=== PATIENT | female | born 1970 | race Caucasian/White ===

== ENCOUNTER 2022-07-31 13:29 | Emergency (ER) | payer OTHER ==
[2022-07-31] MEDS ORDERED: Sodium Chloride 0.9% 10 ML Syringe FLUSH PRN (15:03)
== END 2022-07-31 15:45 | disposition home or self-care (01) ==
LOC: LB.ED 13:29
DX: K21.9 Gastro-esophageal reflux disease without esophagitis (principal); K44.9 Diaphragmatic hernia without obstruction or gangrene
CPT/HCPCS: 36415; 71045; 80053; 81001; 84484; 85027; 85379; 87804; 87804-59; 99285; U0002

== ENCOUNTER 2023-09-12 09:41 | Day surgery (SDC) | payer OTHER ==
[~2023-09-12 09:41] MED LIST: Metoclopramide 10 MG/2 ML SDV IV PRN; Sodium Chloride 0.9% 1,000 ML IV SCH
[2023-09-12] MEDS ORDERED: Propofol 200 MG/20 ML SDV ONE (11:30)
== END 2023-09-12 12:47 | disposition home or self-care (01) ==
LOC: LB.SDS 09:41
PROVIDERS: ATTEND Surgery
DX: Z12.11 Encounter for screening for malignant neoplasm of colon (principal); D12.5 Benign neoplasm of sigmoid colon; K21.9 Gastro-esophageal reflux disease without esophagitis; K44.9 Diaphragmatic hernia without obstruction or gangrene; F41.9 Anxiety disorder, unspecified; M76.60 Achilles tendinitis, unspecified leg; R07.9 Chest pain, unspecified; R04.0 Epistaxis; Z79.899 Other long term (current) drug therapy
CPT/HCPCS: 88305; J2704; J2765; J7030

== ENCOUNTER 2024-06-17 15:51 | Emergency (ER) | payer OTHER ==
[2024-06-17 16:21] LABS: BASOPHILS ABSOLUTE AUTO 0.03 K/uL (0.02-0.10); BASOPHILS PERCENT AUTO 0.4 % (0.0-0.5); EOSINOPHILS ABSOLUTE AUTO 0.42 K/uL (0.04-0.40); EOSINOPHILS PERCENT AUTO 5.3 % (1.0-5.0); HEMATOCRIT 41.8 % (37.0-47.0); HEMOGLOBIN 13.8 g/dL (11.5-16.5); LYMPHOCYTES ABSOLUTE AUTO 1.69 K/uL (1.50-4.00); LYMPHOCYTES PERCENT AUTO 21.4 % (20.0-40.0); MEAN CORPUSCULAR VOLUME 85 fL (76-96); MEAN PLATELET VOLUME 9.6 fL (6.0-10.0); MONOCYTES ABSOLUTE AUTO 0.47 K/uL (0.20-0.80); NEUTROPHILS ABSOLUTE AUTO 5.27 K/uL (2.00-7.50); NEUTROPHILS PERCENT AUTO 66.9 % (45.0-70.0); PLATELET COUNT,PLT 235 K/uL (150-500); RED BLOOD CELL COUNT 4.92 M/uL (3.80-5.80); RED CELL DISTRIBUTION WIDTH 13.4 % (11.0-16.0); WHITE BLOOD CELL COUNT,WBC 7.9 K/uL (4.0-11.0)
[2024-06-17] MEDS: Ketorolac 30 MG/ML SDV IM ONE (16:30)
[2024-06-17 16:42] LABS: A/G RATIO 1.1 (0.8-2.0); ALANINE AMINOTRANSFERASE,ALT 24 U/L (12-78); ALBUMIN 3.7 g/dL (3.4-5.0); ALKALINE PHOSPHATASE 96 U/L (46-116); ANION GAP 13.7 mmol/L (5.0-15.0); ASPARTATE AMNIOTRANSFERASE,AST 13 U/L (15-37); BILIRUBIN TOTAL 0.6 mg/dL (0.0-1.0); BLOOD UREA NITROGEN,BUN 23 mg/dL (8-26); CALCIUM 9.2 mg/dL (8.5-10.1); CARBON DIOXIDE,CO2 27.2 mmol/L (21.0-32.0); CHLORIDE,CL 99 mmol/L (98-107); CREATININE 0.82 mg/dL (0.55-1.02); ESTIMATED GFR 86 mL/min (>60); GLUCOSE RANDOM 103 mg/dL (74-100); POTASSIUM,K 3.9 mmol/L (3.5-5.1); SODIUM,NA 136 mmol/L (136-145)
[2024-06-17] MEDS ORDERED: Sodium Chloride 0.9% 10 ML Syringe FLUSH PRN (17:11)
[2024-06-17] MEDS: Sodium Chloride 0.9% 50 ML SDV FLUSH ONE (17:13)
[2024-06-17] MEDS: Iopamidol 612 MG/ML 100 ML Bottle IV SCH (17:13)
[2024-06-17 17:39] LABS: APPEARANCE,URINE CLEAR (CLEAR); COLOR,URINE YELLOW; PROTEIN,URINE NEGATIVE (NEGATIVE); UROBILINOGEN,URINE 0.2 E.U./dL (0.2-1.0)
[2024-06-17 17:40] LABS: BILIRUBIN,URINE NEGATIVE (NEGATIVE); GLUCOSE,URINE NEGATIVE (NEGATIVE); KETONES,URINE NEGATIVE (NEGATIVE); LEUKOCYTE ESTERASE,URINE NEGATIVE (NEGATIVE); NITRITE,URINE NEGATIVE (NEGATIVE); OCCULT BLOOD,URINE NEGATIVE (NEGATIVE)
[2024-06-18] MEDS: Ketorolac 30 MG/ML SDV ONE (09:32)
== END 2024-06-17 18:22 | disposition home or self-care (01) ==
LOC: LB.ED 15:51
DX: N94.89 Other specified conditions associated with female genital organs and menstrual cycle (principal); K21.9 Gastro-esophageal reflux disease without esophagitis
CPT/HCPCS: 36415; 74177; 80053; 81003; 85025; 96372; 99284; J1885; J3490; Q9967